=== PATIENT | female | born 1940 ===

== ENCOUNTER 2020-02-25 05:14 | Inpatient (IN) | payer MEDICARE, SELFPAY ==
[2020-02-25] MEDS ORDERED: Prevnar 13-Val Conj/PF 0.5 ML SYRINGE IM ONE (07:30)
[2020-02-25] MEDS ORDERED: VANC IVPB PRN (08:53)
[2020-02-25] MEDS ORDERED: ANTIBIOTICS IVPB PRN (08:53)
[2020-02-25] MEDS ORDERED: Piperacillin/Tazobactam 3.375 GM in Sodium Chloride 0.9% 100 ML IVPB SCH (09:00)
[2020-02-25] MEDS ORDERED: Cefepime 1 GM in Sodium Chloride 0.9% 100 ML IVPB SCH (09:00)
[2020-02-25 09:08] LABS: Anion Gap 19 mmol/L (10-20); BUN (Urea Nitrogen) 120 mg/dL (9.8-20.1); Calc. Creatinine Clearance 0 mL/min (70-130); Calcium 9.3 mg/dL (7.8-10.44); Carbon Dioxide 16 mmol/L (23-31); Chloride 96 mmol/L (98-107); Estimated GFR-MDRD 7; Glucose 203 mg/dL (83-110); Potassium 6.1 mmol/L (3.5-5.1); Sodium 125 mmol/L (136-145)
--- NOTE | 2020-02-25 09:44 | PDOC.GSPN ---
Surgery Progress Note: Subj - Subjective Narrative: Events noted. Unsure how long the wound vac has been off. Surgery Progress Note: Obj - Vital signs Vital signs: Vital Signs - Most Recent Temp Pulse Resp BP Pulse Ox 95.5 F L 02/25/20 08:32 - Physical Exam General: other (Not talking much. No significant distress) Abdomen: soft, non tender, nondistended Wound: other (There is no wound vac. The wound has a foul smell. No purulence. There are patchy areas of necrosis. No eviseration) Surgery Progress Note: Results - Labs Result Diagrams: 02/25/20 08:40 Lab results: Laboratory Results - last 24 hr 02/25/20 08:40 Sodium 125 L Potassium 6.1 H Chloride 96 L Carbon Dioxide 16 L Anion Gap 19 BUN 120 H Creatinine 6.16 H Estimated GFR (MDRD) 7 Glucose 203 H Calcium 9.3 Surgery Progress Note: A/P - Problem (1) Wound, open Current Visit: Yes Code(s): T14.8XXA - OTHER INJURY OF UNSPECIFIED BODY REGION , INITIAL ENCOUNTER Status: Acute (2) Renal failure Current Visit: Yes Status: Acute - Plan Plan: Pt well known to me. Already has history of high output ileostomy I had her on lomotil. -Need to replace wound vac today. I can debride the wound sharply in next few days if I need to. -Failure to thrive -DNR per family. Hopefully the kidney function will improve. I would not be surprised if some of this is dehydration
--- NOTE | 2020-02-25 09:51 | RAD ---
PORTABLE CHEST 1 VIEW: DATE: 02/25/2020. TIME: 9:29 AM. HISTORY: Concern for pneumonia. FINDINGS/IMPRESSION: Comparison is made with the exam of 10/12/2008. The heart size is normal. Chronic changes are again seen. No focal areas of consolidation, pneumothoraces, or pleural effusions are seen. There is a ri ght-sided central line with tip in the projection of the SVC. POS: HIEUA
[2020-02-25] MEDS ORDERED: Piperacillin/Tazobactam 2.25 GM in Sodium Chloride 0.9% 100 ML IVPB SCH (10:00)
[2020-02-25] MEDS ORDERED: Vancomycin HCl 500 MG in Sodium Chloride 0.9% 100 ML IVPB SCH (10:15)
[2020-02-25] MEDS: Sodium Chloride 0.9% 1,000 ML IV SCH ×2 (10:16→19:41)
[2020-02-25] MEDS: Heparin 5,000 UNITS/ML VIAL SC SCH ×3 (10:16→21:06)
--- NOTE | 2020-02-25 11:01 | CON ---
DATE OF CONSULTATION: HISTORY OF PRESENT ILLNESS: Opal Leal who is a 79-year-old female transferred from the [facility] after she presented there from a [facility] with acute encephalopathy, respiratory failure with saturations in the 70s. She has multiorgan failure. Apparently on arrival, her saturations were 87%. She was placed on nonrebreather. Extensive imaging studies were done as outlined. Obviously, unable to get any history from the patient. She is in the ICU at this stage. HOME MEDICATIONS: The history and physical note states that the patient's home medicines include: 1. Gabapentin 600. 2. Metoprolol 25. 3. Tylenol. 4. Duloxetine 60. 5. Vitamin. 6. Zinc. 7. Insulin Lantus. 8. Nystatin. 9. Atorvastatin 40. She had a blood gas done, pH 7.28, pCO2 is 34, pO2 was 43, lactic acid was 2.8. White count is 40,000, platelet count 451 additionally. PAST MEDICAL HISTORY: Pertinent for diabetes, renal failure, coronary artery disease, atrial fibrillation, hyperlipidemia, depression, hypertension, fibromyalgia, obesity, COPD. PAST SURGICAL HISTORY: Ileostomy. She was given bicarb, vancomycin, Maxipime, and morphine prior to transfer to [facility]. LABORATORY DATA: Her BUN and creatinine are markedly elevated 130 and 7, sodium 122, potassium 6.4, chloride 87, bicarb was 18. Urine had too numerous to count wbc's. Chest CT shows no abdominal process with some wound dehiscence anterior to midline with bilateral bronchopneumonia. IMPRESSION: 1. Respiratory failure, bilateral bronchopneumonia. 2. Renal failure with encephalopathy. 3. Electrolyte imbalance. 4. History of depression. 5. History of ileostomy. 6. History of chronic obstructive pulmonary disease. PLAN: She was started on Maxipime, Zosyn, and vancomycin. She probably needs emergency dialysis. She probably needs to be intubated. Primary care physician is going to talk the immediate family to see whether she is a full code etc. Prognosis is grave. This is a 70-minute consultation note, 50% direct patient care. Job ID: [id number]
--- NOTE | 2020-02-25 11:16 | HP ---
CHIEF COMPLAINT: Apparently shortness of breath. She was transferred from [facility]. HISTORY: This patient is a 79-year-old female, who according to the daughter, suffered a heart attack in January. Following discharge to rehab, the patient had immediate onset of abdominal pain symptoms. She was found to have ischemic bowel and was taken back to the hospital at [facility] where Dr. Grant performed a diverting ileostomy and bowel resection. From there, the patient was discharged back to [facility] where she promptly became dehydrated and had to be readmitted. In talking to Dr. Grant, this was due to high output ileostomy. She was able to recover from that and went back to [facility] with a wound VAC in place on her midline abdominal incision. The patient apparently reported shortness of breath per the ER record and this was present for a period of a couple of weeks. She had EMS activated per the ER record from [facility] and the patient was found to have saturations in the 80s and was placed on a non-rebreather, and transferred to the ER in [place]. There, the patient was found to have evidence of acute renal failure with hyponatremia, hyperkalemia. With a mixed blood gas obtained, the patient was slightly encephalopathic and appeared to be significantly uremic. She had evidence of bilateral lower lobe infiltrates on CT of the abdomen and pelvis, and potentially evidence of urinary tract infection with a white count of over a 40,000 and left shift. The patient was given 2.5 L of fluid and transferred to this facility. On arrival here, MAP was about 63, systolic of 97. The patient is awake and will converse but does appear to be slightly encephalopathic. REVIEW OF SYSTEMS: Cannot be reliably obtained given the patient's encephalopathy. PAST MEDICAL HISTORY: Based on the record from the ER in the residential indicates she has a history of diabetes, coronary artery disease, atrial fibrillation, CKD stage 3, hyperlipidemia, depression, hypertension, fibromyalgia, prior MT, obesity, and COPD. PAST SURGICAL HISTORY: Ileostomy. SOCIAL HISTORY: The patient has been in and out of [facility] as well as [facility]. She is a nonsmoker, nondrinker. Her daughter is her next of kin, her name is Beata Thompson. She has discussed the situation with the patient's additional siblings and ultimately have made the patient a do not attempt resuscitation with the focus on non-resuscitative measures. We will not intubate, do CPR, perform shock, or provide pressors but provide other therapies as possible. CURRENT MEDICATIONS: 1. Metoprolol 25 mg daily. 2. Gabapentin 600 mg daily. 3. Multivitamin one p.o. daily. 4. Lantus 32 units subcu at bedtime. ALLERGIES: ADHESIVE TAPE, BACITRACIN, MORPHINE, NEOMYCIN, POLYMYXIN, SULFAMETHOXAZOLE AND TRIMETHOPRIM AND WOOL. PHYSICAL EXAMINATION: VITAL SIGNS: Temperature is 95.5, pulse 87, BP 97/43, respirations 13, and O2 saturation 94%. GENERAL APPEARANCE: Age-appropriate female. She is slightly encephalopathic, but will make eye contact and will converse. HEENT: Pupils are sluggish but reactive. She has no OP lesions. NECK: Supple and symmetric. HEART: Regular rate and rhythm without murmurs, gallops, or rubs. LUNGS: Noted for bilateral rales with fair air exchange. ABDOMEN: Soft, nondistended. There is a gaping post surgical wound with dehiscence and with some discoloration and odor on the right lower quadrant ileostomy. EXTREMITIES: No cyanosis, clubbing, or edema. Pulses are present but diminished. PSYCH: Again, the patient is encephalopathic. NEURO: The patient appears to be moving all extremities spontaneously. LABORATORY DATA: From [facility] indicate mixed ABG with pH 7.285, pCO2 34, PO2 43.8. White count was 40.7, hemoglobin 11.8, platelets 451, 79% neutrophils, 9% lymphocytes, 5% bands. Lactic acid 3.1. Urinalysis shows negative nitrites, 500 leukocyte esterase, 6-10 red cells, vxv-qlessqhu-uj-count white cells, 3+ bacteria, 2+ yeast. Sodium 122, potassium 6.4, chloride 87, CO2 is 18, glucose 178, BUN 130, creatinine 7.1 with a GFR of 6, calcium 10, AST 40, ALT 36, alkaline phosphatase 257. Troponin less than 0.017. Magnesium 2.1. Repeat labs here shows potassium of 6.1. IMPRESSION AND PLAN: 1. Severe sepsis, possibly secondary to wound infection, pneumonia, urinary tract infection or a combination thereof. Covering with vancomycin, cefepime, and Zosyn. Cultures have been obtained. 2. Acute renal failure. The patient has chronic kidney disease stage 3 with a GFR usually in the 60s, 70s, followed by Dr. Bishop. He has been consulted. The case has been discussed with him. She has borderline blood pressures and trying to avoid dialysis and work with other measures for now. 3. Hyperkalemia secondary to acute renal failure. The patient received insulin, calcium, and sodium bicarb at the emergency room in [place]. Repeat potassium is somewhat better although still fairly high. She did have peaked T-waves initially. Again, we will see what Dr. Bishop would prefer to do from the nephrology perspective to try to address that. 4. Hyponatremia secondary to acute renal failure, slightly better after fluids. Unfortunately, had to aggressively hydrate in order to maintain blood pressure. We will continue to monitor that. 5. Acute encephalopathy secondary to uremia. 6. Pneumonia, can cover with broad-spectrum antibiotics. 7. Possible urinary tract infection. Follow up cultures. Broad-spectrum antibiotics. 8. Infected abdominal wound. The case was discussed with Dr. Grant. He has evaluated the patient. We will go back to a wound VAC for now and possibly require some debridement in the near future. 9. Severe dehydration. Dr. Grant indicated the patient's previous admission for dehydration at [facility] was due to high output ileostomy and will need to monitor her output carefully and continue to aggressively hydrate. 10. Acute hypoxic respiratory failure. The patient has had pretty good saturations since she has been here. We will continue with nasal cannula oxygen as needed to maintain saturations above 92%. 11. Dysphagia. The patient has some history of dysphagia on a modified diet. Currently encephalopathic. We will have Speech do a swallow eval. 12. History of hypertension. Holding medications for now given the relative hypotension. 13. Diabetes mellitus. We will perform the Accu-Cheks and a sliding scale insulin as that she is currently n.p.o. we will not give her long-acting scheduled insulins. 14. Disposition. Discussed the case with the patient's daughter. Again, she is DNAR. We will try non-life support type measures in order to try to maintain the patient. Job ID: [id number]
[2020-02-25 13:50] VITALS: BMI 15.2
[2020-02-25] MEDS: Piperacillin/Tazobactam 2.25 GM in Sodium Chloride 0.9% 100 ML IVPB SCH ×2 (13:51→22:10)
[2020-02-25] MEDS ORDERED: HumaLOG 300 UNITS/3 ML VIAL SC PRN (15:48)
[2020-02-25] MEDS ORDERED: Dextrose 5% in Water 1,000 ML IV PRN (15:48)
[2020-02-25] MEDS ORDERED: Dextrose 50% Abboject 50 ML SYRINGE IVP PRN (15:48)
--- NOTE | 2020-02-25 17:52 | CON ---
DATE OF CONSULTATION: HISTORY OF PRESENT ILLNESS: Ms. Leal is a 79-year-old white female, who was been admitted for sepsis. Initially, she was hypotensive and given volume repletion, which improved. Her white count was also elevated. She was also found to be in acute kidney injury with hyperkalemia. Volume repletion, insulin, calcium gluconate, sodium bicarbonate was given at that time. The patient's potassium is improved from 6.4 to 6.1. She is currently undergoing IV hydration. She is also being treated with her sepsis. Please note, the patient was seen at the [facility] about a month ago. At that time, she underwent an exploratory laparotomy. She had an ileostomy creation at that time. We are now being consulted for her acute kidney injury. REVIEW OF SYSTEMS: Positive for fever? Decreased appetite, decreased energy level. No overt abdominal pain. No gross hematuria. No dysuria. No urinary frequency. PAST MEDICAL HISTORY: Includes history of morbid obesity, hypertension, status post acute kidney injury, type 2 diabetes mellitus, fibromyalgia, coronary artery disease status post [place]. PAST SURGICAL HISTORY: Status post exploratory laparotomy, status post ileostomy creation, status post cardiac cath, status post coronary artery stent placement, status post left leg surgery, status post femoral fracture repair, status post cholecystectomy. ALLERGIES: LATEX, LEVAQUIN, MORPHINE, NYLON. SOCIAL HISTORY: The patient is currently at [facility]. She used to live alone. 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 No alcohol use. FAMILY HISTORY: Positive family history of coronary artery disease. TRAUMA: None. IMMUNIZATIONS: Up to date. HOSPITALIZATIONS: Please see past medical history. PHYSICAL EXAMINATION: VITAL SIGNS: Blood pressure 97/43, temperature 95.5, heart rate 87, respiratory rate 13, O2 saturation 94%. GENERAL: The patient is awake, comfortable, not in overt distress. SKIN: Adequate turgor. HEENT: She has pinkish conjunctivae. Anicteric sclerae. No neck mass. No carotid bruits. No JVD. CHEST: No deformities. LUNGS: Clear breath sounds. HEART: Normal sinus rhythm. No murmurs, gallops, or rubs. ABDOMEN: Globular, soft, nontender. No masses. Positive for an ileostomy. Positive for surgical wound. EXTREMITIES: No edema. No deformities. NEUROLOGICAL: Awake, oriented to 3 spheres. Moving all extremities. No tremors. No asterixis. No ataxia. LABORATORY DATA: February 25, 2020; sodium 125, potassium 6.1, chloride 96, carbon dioxide 16, BUN 120, creatinine 6.16, glucose 203, calcium 9.3. February 25, 2020; chest x-ray, chronic changes are noted. There is no overt CHF or any focal consolidation. ASSESSMENT AND PLAN: 1. Acute kidney injury, consider hemodynamically-mediated renal dysfunction. Agree with aggressive fluid resuscitation with this patient. Clinically, she is not volume overloaded, and I feel that she may be on the dehydrated side. We will hold off any dialytic intervention. Please note, potassium is actually improved from 6.4 to a most recent value of 6.1. 2. Infected surgical wound, on empiric IV antibiotics. 3. The patient also ruled out with the first COVID-19 testing. The 2nd one has been ordered. Please note, the chest x-ray was negative for any infiltrates or any evidence of congestive heart failure. Overall, I agree with current management. The patient is currently on empiric IV antibiotics. Job ID: [id number]
[2020-02-25] MEDS ORDERED: Cefepime 0.5 GM, Admixture Fee 1 EACH in Sodium Chloride 0.9% 100 ML IVPB SCH (21:00)
[2020-02-26] MEDS: Piperacillin/Tazobactam 2.25 GM in Sodium Chloride 0.9% 100 ML IVPB SCH (05:01)
[2020-02-26] MEDS ORDERED: HYDROmorphone 0.5 MG/0.5 ML SYRINGE SLOW IVP SCH ×2 (05:30→06:00)
[2020-02-26 05:49] LABS: Band 7 % (5-11); Hemoglobin 10.2 g/dL (12.0-16.0); Hypochromia SLIGHT = 6-15 cells (100X) (0-5/hpf); Lymphocytes 3 % (21-51); MDiff Complete? YES; Mean Corpuscular HGB CONC 31.2 g/dL (32.0-36.0); Mean Corpuscular Hemoglobin 27.4 pg (27.0-31.0); Mean Corpuscular Volume 87.7 fL (78.0-98.0); Mean Platelet Volume 7.7 fL (7.4-10.4); Metamyelocyte 1 % (0-0); Monocytes 2 % (0-10); Neutrophil 87 % (42-75); Platelet Count 344 thou/uL (130-400); Platelet Morphology Comment Appears Adequate; RBC Distribution Width 14.1 % (11.5-14.5); Red Blood Cell (RBC) Count 3.71 mill/uL (4.20-5.40); White Blood Cell (WBC) Count 39.7 thou/uL (4.8-10.8)
[2020-02-26 05:54] LABS: ALT (SGPT) 21 U/L (8-55); AST (SGOT) 29 U/L (5-34); Albumin 2.5 g/dL (3.4-4.8); Alkaline Phosphatase 193 U/L (40-110); Anion Gap 19 mmol/L (10-20); BUN (Urea Nitrogen) 124 mg/dL (9.8-20.1); Bilirubin, Total 0.5 mg/dL (0.2-1.2); Calc. Creatinine Clearance 6 mL/min (70-130); Calcium 8.9 mg/dL (7.8-10.44); Carbon Dioxide 16 mmol/L (23-31); Chloride 100 mmol/L (98-107); Estimated GFR-MDRD 7; Glucose 135 mg/dL (83-110); Potassium 5.5 mmol/L (3.5-5.1); Protein, Total 6.5 g/dL (6.0-8.3); Sodium 129 mmol/L (136-145)
[2020-02-26] MEDS: Sodium Chloride 0.9% 1,000 ML IV SCH (07:13)
[2020-02-26] MEDS: Heparin 5,000 UNITS/ML VIAL SC SCH ×2 (08:30→15:57)
[2020-02-26] MEDS ORDERED: Vancomycin HCl 500 MG in Sodium Chloride 0.9% 100 ML IVPB SCH (09:00)
[2020-02-26] MEDS ORDERED: Albumin 25% 25 GM/100 ML BOT IVPB ONE (09:17)
[2020-02-26 09:18] LABS: Vancomycin, Random 11.5 ug/mL (See Comment)
--- NOTE | 2020-02-26 09:33 | PRG ---
DATE OF SERVICE: SUBJECTIVE: Ms. Leal is a 79-year-old white female who was admitted for sepsis. We are following this patient for her acute kidney injury. Previously, she was seen at the [facility] for an acute kidney injury that was from a nonoliguric ATN. Blood pressure was noted to be low, and at the same time, her potassium was elevated. Her blood pressure is stabilizing. In addition, potassium is much improved. There is a slight improvement also of the renal function. Due to the metabolic acidosis, we will change the patient to a bicarbonate drip. I will review another urinalysis and urine chemistries with this patient. The patient is currently on IV antibiotics. OBJECTIVE: VITAL SIGNS: Blood pressure 102/46, heart rate 86, respiratory rate 14, O2 saturation 97%. GENERAL: The patient is lethargic, but arousable and responsive to verbal stimuli. SKIN: Decreased turgor. HEENT: She has a pinkish conjunctivae. Anicteric sclerae. NECK: No neck mass. No carotid bruits. No JVD. CHEST: No deformities. LUNGS: Clear breath sounds. HEART: Normal sinus rhythm. No murmurs, gallops, or rubs. ABDOMEN: Globular, soft, nontender. No masses. EXTREMITIES: No edema, no deformities. MEDICATIONS: Medications of February 26, 2020, reviewed. LABORATORY DATA: Laboratories of February 26, 2020; sodium 129, potassium 5.5, chloride 100, carbon dioxide 16, BUN 124, creatinine 5.64, glucose 135. AST 29, ALT 21, albumin is 2.5. White count 39.7, hemoglobin 10.2. ASSESSMENT AND PLAN: 1. Acute kidney injury - consider hemodynamically-mediated renal dysfunction. Continue to optimize the patient's hemodynamics. Due to the metabolic acidosis, we will change the IV fluid to a bicarbonate drip at 125 mL/hour. I do not feel there is a need for any emergent hemodialysis with this patient. Continue to optimize hemodynamics. Consider adding albumin infusion at 25 g IV q.6 h. 2. Sepsis syndrome - currently on empiric IV antibiotics. Overall, prognosis remains guarded. Job ID: [id number]
[2020-02-26] MEDS: Sodium Chloride 0.45% 1,000 ML IV SCH ×2 (09:35→17:20)
[2020-02-26] MEDS: Albumin 25% 25 GM/100 ML BOT IVPB SCH ×2 (09:35→15:57)
--- NOTE | 2020-02-26 09:36 | PRG ---
DATE OF SERVICE: 02/26/2020 SUBJECTIVE: Opal Leal, this morning, is awake, alert, and responsive. OBJECTIVE: VITAL SIGNS: Blood pressure 95/62, pulse sat is 95%. CHEST: No wheezing or crackles. CARDIAC: Normal S1, S2. No gallops. ABDOMEN: Soft LABORATORY DATA: Creatinine is 5.6, BUN is 124, sodium 129. White count . ASSESSMENT AND PLAN: 1. Sepsis. 2. Abdominal pain. 3. Renal failure. 4. Electrolyte imbalance. Antibiotics, as per Renal, adjusted dose. Supportive care. Hydration. She is a DNR. No dialysis at this stage. We will follow in the ICU. Job ID: [id number]
[2020-02-26] MEDS ORDERED: Vancomycin HCl 750 MG in Sodium Chloride 0.9% 250 ML 250 ML IVPB SCH (10:00)
[2020-02-26] MEDS ORDERED: Vancomycin HCl 750 MG in Sodium Chloride 0.9% 100 ML IVPB SCH (10:00)
--- NOTE | 2020-02-26 10:23 | PDOC.PALCO ---
Palliative Care Consult - Consult Details Requesting Physician: Dr Aguilar Reason for Consult: goals of care, family support - Allergies Allergies/Adverse Reactions: Allergies Allergy/AdvReac Type Severity Reaction Status Date / Time adhesive Allergy Verified 01/26/20 18:34 bacitracin Allergy Verified 01/26/20 18:34 [From Neosporin ([id number])] bacitracin zinc Allergy Verified 01/26/20 18:34 [From Neosporin ([id number])] latex Allergy Verified 02/25/20 12:02 levofloxacin [From Levaquin] Allergy Verified 01/26/20 18:34 morphine Allergy Verified 01/26/20 18:34 neomycin sulfate Allergy Verified 01/26/20 18:34 [From Neosporin ([id number])] nylon Allergy Verified 01/26/20 18:34 polymyxin B Allergy Verified 01/26/20 18:34 [From Neosporin ([id number])] Sulfa (Sulfonamide Allergy Verified 01/26/20 18:34 Antibiotics) sulfamethoxazole Allergy Verified 01/26/20 18:34 [From Bactrim] trimethoprim [From Bactrim] Allergy Verified 01/26/20 18:34 wool Allergy Verified 01/26/20 18:34 - Objective Vital Signs: Vital Signs - Most Recent Temp Pulse Resp BP Pulse Ox 97.2 F L 94 L 02/26/20 08:00 02/25/20 20:00 - Plan/Recommendations Plan:Spoke with Dr Aguilar. Called and discussed with tra daughter. Family to come to bedside to be with Ms. Leal at end of life. Emotional Support offered [] minutes spent on this encounter with >50% of the time in counseling and coordination of care. Thank you for this very appropriate consult.
[2020-02-26 10:55] LABS: Creatinine, Urine 301.45 mg/dL (47-110)
[2020-02-26 11:47] LABS: Bacteria/HPF None Seen HPF (None Seen); Bilirubin Negative (Negative); Blood, Urine 1+ (Negative); Clarity Extra Turbid (Clear); Glucose, Urine (Dipstick) Normal (Negative); Leukocyte 500 Leu/uL (Negative); Nitrite Negative (Negative); Protein, Urine (Dipstick) 70 mg/dL (Neg-Trace); RBC/HPF Greater than 50 HPF (0-3); Renal Epithelial 0-3 HPF (None Seen); Squamous Epithelial 0-3 HPF (0-3); Transitional Epithelial 0-3 HPF (None Seen); Urobilinogen Normal mg/dL (Less than 2); WBC/HPF Greater than 50 HPF (0-3); Yeast-Budding 2+ HPF (None Seen)
[2020-02-26] MEDS ORDERED: Fentanyl 100 MCG/2 ML VIAL SLOW IVP PRN (15:34)
--- NOTE | 2020-02-26 16:42 | PDOC.HOSPP ---
- Subjective Encounter Date: 02/26/20 Subjective: Less responsive today. Non-verbal for me. - Objective Vital Signs & Weight: Vital Signs (12 hours) Temp Pulse Ox 02/26/20 08:00 97.2 F L 98 Weight Admit Weight 97 lb Weight 225 lb 1.471 oz Most Recent Monitor Data Heart Rate from ECG 97 NIBP 102/76 NIBP BP-Mean 84 Respiration from ECG 20 SpO2 97 I&O: 02/25/20 02/26/20 02/27/20 06:59 06:59 06:59 Intake Total 2089 200 Output Total 300 70 Balance 1789 130 Result Diagrams: 02/26/20 05:10 02/26/20 05:10 Hospitalist ROS - Medication Medications: Active Medications Generic Name Dose Route Start Last Admin Trade Name Freq PRN Reason Stop Dose Admin Albumin Human 25 gm 02/26/20 10:00 02/26/20 15:57 Albumin 25% IVPB 02/27/20 04:01 25 gm Q6H LOYDA Administration Heparin Sodium (Porcine) 5,000 units 02/25/20 09:00 02/26/20 15:57 Heparin SC 5,000 units TID LOYDA Administration Cefepime HCl 0.5 gm/ 100 mls @ 200 mls/hr 02/25/20 21:00 02/25/20 21:06 Miscellaneous Medication 1 IVPB 100 mls each/ Sodium Chloride 2100 LOYDA Administration Sodium Chloride 1,000 mls @ 125 mls/hr 02/26/20 09:15 02/26/20 09:35 1/2 Normal Saline IV 1,000 mls .Q8H LOYDA Administration Insulin Human Lispro 0 units 02/25/20 15:48 02/25/20 16:40 Humalog SC 3 units .MILD SLIDING SCALE PRN Administration MILD SLIDING SCALE Protocol Sodium Chloride 10 ml 02/25/20 21:00 02/26/20 08:30 Flush - Normal Saline IVF 10 ml Q12HR LOYDA Administration - Exam General Appearance: NAD, awake alert Heart: RRR, no murmur, no gallops, no rubs, normal peripheral pulses Respiratory: CTAB, no wheezes, no rales, no ronchi, normal chest expansion, no tachypnea, normal percussion Respiratory - other findings: Diminished Gastrointestinal: soft, non-distended, no palpable masses, no hepatomegaly, no splenomegaly, no bruit, diminished bowl sounds Gastrointestinal - other findings: Wound odor still present. Extremities: 1+ LE edema Skin: normal turgor Musculoskeletal: generalized weakness Psychiatric: somnolent Hosp A/P (1) Severe sepsis Code(s): A41.9 - SEPSIS, UNSPECIFIED ORGANISM; R65.20 - SEVERE SEPSIS WITHOUT SEPTIC SHOCK Status: Acute (2) Acute metabolic encephalopathy Code(s): G93.41 - METABOLIC ENCEPHALOPATHY Status: Acute (3) Acute renal failure Status: Acute (4) Wound infection after surgery Code(s): T81.49XA - INFECTION FOLLOWING A PROCEDURE, OTHER SURGICAL SITE, INIT Status: Acute (5) Pneumonia Code(s): J18.9 - PNEUMONIA, UNSPECIFIED ORGANISM Status: Acute (6) UTI (urinary tract infection) Status: Acute - Plan She has not made much urine at all. Numbers slightly better with hydration/dilution, but no real UOP. BP dropped to the 60's today. Family was called in. BP rebounded slightly, but prognosis is still very poor. Discussed with her family. Discussed with PCT. Will request Hospice eval. Transfer to floor as we will not be doing any ICU level interventions. Focus will be comfort measures. Fentanyl IV ordered.
[2020-02-26] MEDS ORDERED: Piperacillin/Tazobactam 2.25 GM in Sodium Chloride 0.9% 100 ML IVPB SCH (18:00)
[2020-02-26 20:11] VITALS: BP 99/60; TEMP 97.6
[2020-02-27] MEDS ORDERED: Vancomycin HCl 750 MG in Sodium Chloride 0.9% 250 ML 250 ML IVPB SCH (10:00)
== END 2020-02-26 20:26 | disposition hospice, inpatient (51) | DRG 871 ==
LOC: CCU 06:45 → SURG A 02-26 17:10
PROVIDERS: ADMIT Internal Medicine; ATTEND Internal Medicine
DX: A41.9 Sepsis, unspecified organism (principal); J18.9 Pneumonia, unspecified organism; J96.01 Acute respiratory failure with hypoxia; Z66 Do not resuscitate; Z51.5 Encounter for palliative care; M79.7 Fibromyalgia; G93.41 Metabolic encephalopathy; N39.0 Urinary tract infection, site not specified; N17.9 Acute kidney failure, unspecified; E87.1 Hypo-osmolality and hyponatremia; T81.49XA Infection following a procedure, other surgical site, initial encounter; E87.2 Acidosis; R65.20 Severe sepsis without septic shock; Y83.8 Other surgical procedures as the cause of abnormal reaction of the patient, or of later complication, without mention of misadventure at the time of the procedure; N18.3 Chronic kidney disease, stage 3 (moderate); E87.5 Hyperkalemia; E86.0 Dehydration; R13.10 Dysphagia, unspecified; I12.9 Hypertensive chronic kidney disease with stage 1 through stage 4 chronic kidney disease, or unspecified chronic kidney disease; E11.22 Type 2 diabetes mellitus with diabetic chronic kidney disease; E86.9 Volume depletion, unspecified; Z93.2 Ileostomy status; Z88.1 Allergy status to other antibiotic agents; Z91.040 Latex allergy status; Z88.5 Allergy status to narcotic agent; Z91.048 Other nonmedicinal substance allergy status; Z79.899 Other long term (current) drug therapy; Z79.4 Long term (current) use of insulin; Z79.82 Long term (current) use of aspirin; Z95.5 Presence of coronary angioplasty implant and graft; Z90.49 Acquired absence of other specified parts of digestive tract; J44.9 Chronic obstructive pulmonary disease, unspecified; F32.9 Major depressive disorder, single episode, unspecified; E78.5 Hyperlipidemia, unspecified; E66.9 Obesity, unspecified; I25.2 Old myocardial infarction; Z68.35 Body mass index [BMI] 35.0-35.9, adult
CPT/HCPCS: 36416; 71045; 80048; 80053; 80202; 81001; 82570; 84300; 85025; 87070; 87077; 87186; 87205; J0692; J1170; J1644; J2543; J3010; J3370; J3475; J3490; J7050; P9047

== ENCOUNTER 2020-02-26 20:38 | Inpatient (IN) | payer OTHER ==
[2020-02-26 22:15] VITALS: BMI 35.3
[2020-02-26] MEDS ORDERED: Haloperidol Lactate 5 MG/ML VIAL SLOW IVP PRN (22:30)
[2020-02-26] MEDS ORDERED: Scopolamine 1.5 mg/72 hour Patch TOP PRN (22:30)
[2020-02-26] MEDS ORDERED: diphenhydrAMINE 50 MG/ML VIAL IVP PRN (22:30)
[2020-02-26] MEDS ORDERED: Ondansetron ODT 4 MG TAB PO PRN (22:30)
[2020-02-26] MEDS ORDERED: Ondansetron PF 4 MG/2 ML Vial IVP PRN (22:30)
[2020-02-26] MEDS ORDERED: Bisacodyl 10 MG SUPP PR PRN (22:31)
[2020-02-26] MEDS: Fentanyl 100 MCG/2 ML VIAL SLOW IVP PRN (22:52)
[2020-02-27] MEDS: Fentanyl 100 MCG/2 ML VIAL SLOW IVP PRN ×4 (08:52→20:19)
[2020-02-27] MEDS ORDERED: Albuterol Sulfate 2.5 mg/3 ml Neb NEB PRN (08:54)
[2020-02-27] MEDS ORDERED: HYDROmorphone 0.5 MG/0.5 ML SYRINGE SLOW IVP PRN (08:56)
[2020-02-27] MEDS: Clotrimazole 2% 3 Day Vag Cr 22.2 GM TUBE FS SCH ×2 (10:04→20:25)
--- NOTE | 2020-02-27 10:29 | HP ---
CHIEF COMPLAINT: Diffuse pneumonia and sepsis with end-of-life care. HISTORY OF PRESENT ILLNESS: The patient is a 79-year-old female, resident of [facility], who recently had an acute ME in January of this year. Following that, she developed some ischemic bowel and was taken back to [facility] in [place] where Dr. Grant performed a diverting ileostomy and bowel resection. The patient returned to [facility] and from there, became dehydrated due to high output from the ileostomy, and returned back to [facility] where she developed severe shortness of breath and desaturated. Because of the need for ICU care, she was transferred to [facility] where she was noted to have pneumonia to be septic and had begun going into renal failure. Due to her very poor prognosis, Palliative Care was called in and the family agreed to make her a DNR and involve hospice at this point for end-of-life care. The patient has been encephalopathic during this time, but at the time of my evaluation, she responded to stimuli, told me her name, and stated that she was not in pain. PAST MEDICAL HISTORY: Significant for recent acute ME, coronary artery disease, atrial fibrillation, chronic kidney disease, stage 3, hyperlipidemia, depression , hypertension, fibromyalgia, obesity, COPD, and history of diabetes. PAST SURGICAL HISTORY: Includes the aforementioned ileostomy. SOCIAL HISTORY: As previously mentioned, she has been living at [facility]. She is a nonsmoker, nondrinker, and has a supportive care from her family. They have agreed at this point to make her a DNR. CURRENT MEDICATIONS: Have included; 1. Metoprolol 25 daily. 2. Gabapentin 600 daily. 3. Multiple vitamin daily. 4. Lantus 32 units subcutaneously at bedtime. ALLERGIES: INCLUDE ADHESIVE TAPE, BACITRACIN, MORPHINE, NEOMYCIN, POLYMYXIN, SULFA, AND WOOL. REVIEW OF SYSTEMS: Unobtainable at this time. PHYSICAL EXAMINATION: VITAL SIGNS: At the time of admission include blood pressure of 99/60, pulse 90 , respirations 16, O2 saturation at 92% on 1 L, temperature 98.5. HEENT: Pupils at 2-3 mm, reactive to light. Arcus senilis bilaterally. TMs and nares clear. Pharynx is dry. NECK: Supple. CHEST: With diffuse rhonchi and crackles bilaterally. HEART: Regular rate and rhythm. BREASTS: Deferred. ABDOMEN: With wound VAC in place. No signs of erythema. There is heat present and tenderness to exam. Functional ileostomy in place as well. EXTREMITIES: The patient is able to move her extremities. There is symmetrical muscular tone development noted. SKIN: With good turgor. There are signs of skin breakdown in all the dependent pressure areas and signs of hypertrophic skin thickening due to poor hygiene. NEUROLOGIC: The patient was able to tell me her name is K and that she was not in pain. Sensory exam is grossly intact. Unable to test gait and cerebellar function. Mentation is very slowed and deliberate. LABORATORY DATA: Last laboratories showed a WBC of 39.7 with a hemoglobin of 10 and hematocrit of 32, and platelet of 344,000. Last chemistry showed sodium 129, potassium 5.5, chloride 124 with a BUN of 5.6. Glucose was 135. Hemoglobin A1c 8.3. Liver functions unremarkable. Last urinalysis showed 500 leukocyte esterase with greater than 50 wbc's and toxicology screen showed vancomycin in a therapeutic range. COVID-19 negative and chest x-ray showed possible pneumonia. ASSESSMENT: 1. Sepsis. 2. Pneumonia. 3. End-stage renal disease. 4. Diabetes. 5. Urinary tract infection. PLAN: The patient's prognosis is extremely poor making her hospice appropriate. We will provide supportive measures throughout her care, pain control, serial re-evaluation and counseling for the family. Job ID: [id number] [facility]
[2020-02-28] MEDS: Fentanyl 100 MCG/2 ML VIAL SLOW IVP PRN (00:15)
[2020-02-28] MEDS: HYDROmorphone 0.5 MG/0.5 ML SYRINGE SLOW IVP PRN ×3 (02:14→21:13)
[2020-02-28] MEDS: Clotrimazole 2% 3 Day Vag Cr 22.2 GM TUBE FS SCH ×2 (08:03→20:22)
[2020-02-28] MEDS: Lorazepam 2 MG/ML VIAL SLOW IVP PRN (08:55)
[2020-02-28] MEDS ORDERED: HYDROmorphone 0.5 MG/0.5 ML SYRINGE SC PRN (09:01)
[2020-02-28] MEDS ORDERED: Albuterol Sulfate 2.5 mg/3 ml Neb NEB PRN (09:02)
[2020-02-28] MEDS ORDERED: SODIUM CHLORIDE 0.9% NEB PRN (15:38)
[2020-02-28] MEDS ORDERED: HYDROMORPHONE NEB PRN (15:38)
[2020-02-29] MEDS: HYDROmorphone 0.5 MG/0.5 ML SYRINGE SLOW IVP PRN ×4 (01:05→20:34)
[2020-02-29] MEDS: Clotrimazole 2% 3 Day Vag Cr 22.2 GM TUBE FS SCH ×2 (09:56→20:42)
[2020-03-01] MEDS: HYDROmorphone 0.5 MG/0.5 ML SYRINGE SLOW IVP PRN ×3 (06:02→19:38)
[2020-03-01] MEDS: Fentanyl 100 MCG/2 ML VIAL SLOW IVP PRN ×3 (08:45→10:58)
[2020-03-01] MEDS: Clotrimazole 2% 3 Day Vag Cr 22.2 GM TUBE FS SCH ×2 (08:55→20:25)
[2020-03-01] MEDS ORDERED: HYDROmorphone 2 MG/ML VIAL SLOW IVP PRN (13:24)
[2020-03-01] MEDS: methylPREDNISolone Sod Succ/PF 125 MG/2 ML VIAL IVP SCH (14:37)
[2020-03-02] MEDS: methylPREDNISolone Sod Succ/PF 125 MG/2 ML VIAL IVP SCH ×2 (01:49→15:32)
[2020-03-02] MEDS: Clotrimazole 2% 3 Day Vag Cr 22.2 GM TUBE FS SCH ×2 (09:41→20:40)
[2020-03-02] MEDS: HYDROmorphone 0.5 MG/0.5 ML SYRINGE SLOW IVP PRN ×2 (09:45→21:14)
[2020-03-03] MEDS: HYDROmorphone 0.5 MG/0.5 ML SYRINGE SLOW IVP PRN ×3 (06:12→21:32)
[2020-03-03] MEDS: Clotrimazole 2% 3 Day Vag Cr 22.2 GM TUBE FS SCH ×2 (08:30→21:31)
[2020-03-03] MEDS: Lorazepam 2 MG/ML VIAL SLOW IVP PRN (14:24)
[2020-03-03 18:59] VITALS: BP 134/82
[2020-03-04 09:24] VITALS: TEMP 99.1
--- NOTE | 2020-03-05 14:16 | DIS ---
DATE OF ADMISSION: 02/26/2020 DATE OF DISCHARGE: 03/04/2020 DISCHARGE/ SUMMARY: DATE OF : 03/04/2020. CHIEF COMPLAINT: End-of-life care-hospice. History and physical had previously been dictated, I will resume from there. HOSPITAL COURSE: The patient was kept in a medical bed for comfort, and fentanyl/Dilaudid was utilized for patient comfort. Over the first 24 hours, the patient was alert, but unresponsive. She had told one of the nurses that her cervix was hurting. This was interpreted as a deep internal abdominal type pain, so her medication was adjusted. She was also put on Monistat for what appeared to be a severe monilial infection. By 02/27, she was actually worse and spoke, clearly indicating that she was not in any pain. She even appeared peaceful. Her family was at her bedside and they were counseled on her exam. She had bilateral rhonchi and crackles. Her abdomen was tender and distended. We continued intermittent wound care such that it was necessary to minimize pain. By 02/28, she remained easily arousable stating that there was no pain. Vital signs were stable. Breath sounds were diminished. Comfort measures were continued. Her pain control was adequate. By 03/01/2020, her pain had worsened significantly and we had to increase her Dilaudid dosing both amount and shorten the frequency. She continued to have fair breath sounds bilaterally. I also did 2 doses of Solu-Medrol in an attempt to diminish the inflammation. By 03/02, she was not responding, but appeared to be comfortable. Abdominal wound actually looked good during dressing change. We continued our comfort measures and counseled the family. By 03/03, there was no response and no evidence of pain or discomfort. Her heart began to become irregular with long pauses. Breath sounds became more faint. By 03/03, she remained nonresponsive. Again, no evidence of pain. Finally, on 03/04, her eyes were open, but there was no response. Her breathing appeared to be labored. Her cardiac action was fast and irregular. Abdomen was firm, and later that morning, the patient with time of noted to be 10:51 a.m. and she was pronounced by the RN present. Family was contacted and Bereavement Services were then begun through hospice. The body was released to the mortuary. DIAGNOSES AT TIME OF : Sepsis with pneumonia and end-stage renal disease. Her comorbidities include diabetes and urinary tract infection and monilial yeast infection. Bereavement Services will be provided by [facility] and the family has already been counseled and is grieving appropriately. Time spent preparing Summary , and family grief counseling (per RN) came to 35 minutes. Job ID: [id number] [facility]
== END 2020-03-04 14:43 | disposition expired | DRG 951 ==
LOC: SURG A 20:38
PROVIDERS: ADMIT Internal Medicine; ATTEND Specialist
DX: Z51.5 Encounter for palliative care (principal); A41.9 Sepsis, unspecified organism; J18.9 Pneumonia, unspecified organism; N18.6 End stage renal disease; G93.41 Metabolic encephalopathy; J44.0 Chronic obstructive pulmonary disease with (acute) lower respiratory infection; N39.0 Urinary tract infection, site not specified; B37.89 Other sites of candidiasis; Z66 Do not resuscitate; Z20.828 Contact with and (suspected) exposure to other viral communicable diseases; I25.10 Atherosclerotic heart disease of native coronary artery without angina pectoris; I48.91 Unspecified atrial fibrillation; E78.5 Hyperlipidemia, unspecified; I12.9 Hypertensive chronic kidney disease with stage 1 through stage 4 chronic kidney disease, or unspecified chronic kidney disease; M79.7 Fibromyalgia; E11.22 Type 2 diabetes mellitus with diabetic chronic kidney disease; F32.9 Major depressive disorder, single episode, unspecified; E66.9 Obesity, unspecified; Z79.4 Long term (current) use of insulin; I25.2 Old myocardial infarction; Z79.899 Other long term (current) drug therapy; Z88.1 Allergy status to other antibiotic agents; Z88.2 Allergy status to sulfonamides; Z88.8 Allergy status to other drugs, medicaments and biological substances; Z91.048 Other nonmedicinal substance allergy status; Z88.5 Allergy status to narcotic agent; Z68.35 Body mass index [BMI] 35.0-35.9, adult
CPT/HCPCS: 94640; J1170; J1630; J2060; J2930; J3010; J7620